=== PATIENT | female | born 2005 | race Caucasian/White ===

== ENCOUNTER 2023-04-25 09:03 | Outpatient (CLI) | payer OTHER, SELFPAY ==
--- NOTE | 2023-04-25 09:15 | CRLHL7_ITS ---
For Patients: As a result of the Cures Act, medical imaging exams and procedure reports are released immediately into your electronic medical record. You may view this report before your referring provider. If you have questions, please contact your health care provider. INDICATION: First trimester scan, establish dates. COMPARISON: None. TECHNIQUE: Real-time wright-scale imaging of the pelvis was performed. FINDINGS: Sonographic imaging demonstrates a single living intrauterine gestation. The embryo demonstrates a regular cardiac rate measuring 150 beats per minute. The embryo`s crown-rump length measurement of 1.2 cm corresponds to a gestational age of 7 weeks 2 days with a sonographic due date of December 10, 2023. There is a normal-appearing yolk sac measuring 2 mm. There are no gross abnormalities noted within the embryo at this early state of development. The placenta has not yet developed. The gestational sac has a normal appearance. Two small foci of subchorionic hemorrhage 1 near the fundus and 1 along the inferolateral aspect of the gestational sac both of which measure less than 10 mm. The amount of fluid within the sac appears appropriate for gestational age. The cervix is closed. The myometrium appears normal except for a probable 8 x 4 x 7 mm right lower intramural uterine fibroid. The ovaries are of normal size. The right ovary measures 3.4 x 2.8 x 2.4 cm and contains a corpus luteum cyst of measuring 2.4 x 1.9 x 2.1 cm. The left ovary measures 2.9 x 2.0 x 2.2 cm. There are no suspicious fluid collections noted in the cul-de-sac. IMPRESSION: Normal first trimester OB ultrasound exam. Gestational age calculated at 7 weeks 2 days with a sonographic due date of December 10, 2023. Dictated by Mert Bean MD @ 04/25/2023 10:23:23 AM (Electronically Signed)
== END 2023-04-25 09:04 | disposition home or self-care (01) ==
LOC: US 09:07
PROVIDERS: Visit Provider Advanced Practice Midwife
DX: Z34.91 Encounter for supervision of normal pregnancy, unspecified, first trimester (principal); Z3A.01 Less than 8 weeks gestation of pregnancy
CPT/HCPCS: 76817; 80306; 86703; 86803; 86850; 86900; 86901; 87086; 87340; 87491; 87591

== ENCOUNTER 2023-04-25 10:08 | Outpatient (CLI) | payer OTHER, SELFPAY ==
[2023-04-25 18:58] LABS: Chlamydia DNA Amplified* NOT DETECTED (No Detected); GC DNA Amplified* NOT DETECTED (No Detected)
== END 2023-04-25 10:09 | disposition home or self-care (01) ==
PROVIDERS: Visit Provider Advanced Practice Midwife
DX: Z34.91 Encounter for supervision of normal pregnancy, unspecified, first trimester (principal); Z3A.01 Less than 8 weeks gestation of pregnancy
CPT/HCPCS: 80306; 86592; 86703; 86762; 86787; 86803; 86850; 86900; 86901; 87086; 87340; 87491; 87591

== ENCOUNTER 2023-07-23 12:47 | Outpatient (CLI) | payer OTHER, SELFPAY ==
--- NOTE | 2023-07-23 13:00 | CRLHL7_ITS ---
For Patients: As a result of the Century Cures Act, medical imaging exams and procedure reports are released immediately into your electronic medical record. You may view this report before your referring provider. If you have questions, please contact your health care provider. INDICATION: Evaluate anatomy. COMPARISON: 04/25/2023 TECHNIQUE: Real time wright scale imaging of the fetus was performed as well as color Doppler analysis of the umbilical vessels. FINDINGS: Sonographic imaging demonstrates a single living intrauterine gestation. Fetus demonstrates a regular cardiac rate of 149 beats per minute. Fetus has a variable position. The placenta lies fundal posterior without evidence of placenta previa. The edge of the placenta is located 12.0 cm from the internal cervical os. Amniotic fluid volume appears normal. Single deepest vertical pocket: 6.8 cm. The cervix is closed and measures 3.1 cm in length. The composite ultrasound gestational age is calculated at 20 weeks 4 days with an estimated sonographic due date of 12/06/2023. The estimated weight is 349 grams which lies at the 67th %. The following biometric measurements were obtained: Biparietal diameter: 4.8 cm/20 weeks 4 days 76th% Head circumference: 17.7 cm/20 weeks 1 day 52nd% Abdominal circumference: 15.5 cm/20 weeks 4 days 66th% Femur length: 3.2 cm/20 weeks 0 days 44th% The HC/AC ratio measures: 1.15 range (1.07-1.25) On anatomic survey, there is a normal appearance of the cerebral ventricles, cavum septi pellucidi, cisterna magna and cerebellum. The nose, lips, and facial profile appear normal. The cervical, thoracic and lumbar spine are well visualized and appear normal. There is a normal four-chamber heart view and the left and right ventricular outflow tracts appear normal. The diaphragm and stomach appear normal. The kidneys and bladder also appear normal. There is a normal three-vessel cord and there is an eccentric cord insertion site, located 2.1 cm from the placental edge. The four extremities appear normal. IMPRESSION: Concordance of clinical and sonographic dating. No intrinsic abnormalities noted on anatomic survey. Eccentric placental cord insertion into the placenta 2.1 cm from the placental edge. Dictated by Raghav Bradshaw MD @ 07/24/2023 11:29:35 AM (Electronically Signed)
== END 2023-07-23 12:48 | disposition home or self-care (01) ==
PROVIDERS: Visit Provider Obstetrics & Gynecology
DX: Z34.92 Encounter for supervision of normal pregnancy, unspecified, second trimester (principal); Z3A.20 20 weeks gestation of pregnancy
CPT/HCPCS: 76805

== ENCOUNTER 2023-09-17 14:25 | Outpatient (CLI) | payer OTHER, SELFPAY | END 2023-09-17 14:26 | disposition home or self-care (01) | LOC: NFLDREF 09-20 05:50 | PROVIDERS: Visit Provider Obstetrics & Gynecology | DX: Z34.90 Encounter for supervision of normal pregnancy, unspecified, unspecified trimester (principal) | CPT/HCPCS: 86592 ==

== ENCOUNTER 2023-11-14 11:00 | Outpatient (CLI) | payer OTHER, SELFPAY ==
[2023-11-15 13:54] LABS: Strep B DNA Probe Negative (Negative)
[2023-11-15 14:05] LABS: Strep B Susceptibility Needed? No
== END 2023-11-14 11:01 | disposition home or self-care (01) ==
LOC: NFLDREF 11:01
PROVIDERS: Visit Provider Obstetrics & Gynecology
DX: Z34.93 Encounter for supervision of normal pregnancy, unspecified, third trimester (principal); Z3A.36 36 weeks gestation of pregnancy
CPT/HCPCS: 87081; 87653

== ENCOUNTER 2023-12-10 13:30 | Inpatient (IN) | payer OTHER, SELFPAY ==
[2023-12-10] VITALS (37 sets, daily range): BP systolic 92–148; BP diastolic 49–87; PULSE 60–121; RESP 16; TEMP 36.5–36.9; O2SAT 91–100; BMI 31.7
[2023-12-10 15:56] LABS: Amphetamine Screen Urine Negative (Negative); Barbiturate Screen Urine Negative (Negative); Benzodiazepines Screen Urine Negative (Negative); Cannabinoid Screen Urine Negative (Negative); Cocaine Screen Urine Negative (Negative); Methadone Screen Urine Negative (Negative); Methamphetamines Screen Urine Negative (Negative); Opiate Screen Urine Negative (Negative); Oxycodone Screen Urine Negative (Negative); Phencyclidine Screen Urine Negative (Negative); Tricyclic Antidepressant Urine Negative (Negative)
--- NOTE | 2023-12-10 16:42 | W.PM.LDBA ---
Subjective History of Present Illness Date Seen: 12/10/23 Narrative: Patient is being admitted to Labor and Delivery for in labor for delivery. She is a 18 year old at 40 0/7 weeks gestation. Her full history and physical was dictated by Dr. JEONG on 11/21/23. Please see this for details. Patient states that she started to experience more frequent uterine contractions since last night. She called this morning to L&D and since she felt like contractions were still manageable she decided to wait until OB appointment scheduled today. I evaluated patient in clinic and cervix was found 4-5cm/90%/0 station. Sent to L&D for re evaluation for labor. Upon re evaluation cervix found 5cm and much more midline, patient experiencing painful/more intense uterine contractions, recommendation given for admission for delivery. Specific Issues/Plans Partner: Mika (lives with him) H&P by JEAN-PAUL on 11/21/23 1. Hx of marijuana use, stopped when occurred -UDS at [facility]: positive -Needs toxicology when in labor 2. Small fibroid 8 mm, just above the cervix Flu: declines Tdap: Given, 10/17/23 RSV: 11/01/23 OB - Problem Based A/P Additional Plan (1) : Status: Acute Plan Expectant management of labor. GBS negative no need for antibiotic prophylaxis. Pain management as needed. OB Exam Physical Exam Vital signs: Pulse BP Pulse Ox 89 122/85 96 12/10/23 13:32 12/10/23 13:32 12/10/23 13:32 Detailed Labor and Delivery Exam Patient Gravid: Yes Dilation (cm): 5 Effacement (%): 90 Cervix position: mid Consistency: soft Tachysystole: No Contraction intensity: Moderate Fetus (Single) Station: 0 Amniotic Membrane Status: intact Heart Rate Baseline: 130 Monitor Accelerations: Present Monitor Decelerations: None [employer]ach[employer]ist Variability: Moderate (6-25)
[2023-12-10] MEDS: ONDANSETRON ODT 4 MG TAB PO (18:51)
[2023-12-10] MEDS: LACTATED RINGERS 1000 ML 1,000 ML 999 ML IV ×2 (21:03→22:06)
[2023-12-10 21:14] LABS: Basophils Percent Auto 0.1 % (0.0-3.0); Hematocrit 42.9 % (33.0-51.0); Hemoglobin* 14.5 gm/dL (12.0-16.0); Immature Granulocytes Pct Auto 0.3 %; Lymphocytes Percent Auto 5.5 % (20-44); Mean Corpuscular HGB Conc 34 gm/dL (32-36); Mean Corpuscular Hemoglobin 32 pg (26-34); Mean Corpuscular Volume 94 fL (80-100); Monocytes Percent Auto 4.8 % (0.0-11.0); Neutrophils Percent Auto 89.3 % (42.0-72.0); Platelet Count* 167 K/uL (140-440); RDW Coefficient of Variation % 12.7 % (11.5-15.5); Red Blood Count 4.55 m/uL (4.00-5.20)
[2023-12-10 21:23] LABS: Slide Review Reflex No
[2023-12-10] MEDS: ROPIVACAINE 0.2% 100 ml 100 ML 12 MG EPIDURAL (22:06)
--- NOTE | 2023-12-10 22:12 | PM.ANBPRC ---
[facility] Medical History Heart murmur ?R01.1 - Cardiac murmur, unspecified (ICD-10) Social History Narrative: SOCIAL? ? Education: High school ? ? Work: [employer] in [place] ? ? Partner: Mika, not , [employer] ? ? Lives with: Mika? ? Pets: denies? ? Abuse: Denies past Safe at home with current partner ? ? Special Diet: Denies? ? Ok with a blood transfusion: yes? ? Culture or gnosticist beliefs: denies? RISK FACTORS? ? Exercise Times/wk: Active at work. ? ? Depression/Anxiety: denies? ? Previous Treatments NA Therapy NA EZEQUIEL: 2 PHQ 9: 2? ? Seat Belt Use: Routinely ? Smoking: Denies present. Previously smoked marijuana, stopped when the occurred. Alcohol/day: Denies while ? ? Caffeine: denies? ? Drug Use: Marijuana, stopped when occurred ? ? What is your current living situation?: I presently have a place to live Problems where you live: no known problems In the past 12 months, utilities in danger of being shut off: no In past 12 months, lack of transportation kept you from medical appts, meetings, work, or getting things needed for daily living: no In the past 12 mos, have been you worried that your food would run out before you had money to buy more?: never true In the past 12 mos, the food you bought just didn't last and you didn't have money to buy more?: never true Smoking Status: Never smoker How often does anyone, including family, friends and others, physically hurt you: never How often does anyone, including family, friends and others, insult or talk down to you: never How often does anyone, including family, friends and others, threaten you with harm: never How often does anyone, including family, friends and others, scream or curse at you: never Little interest or pleasure in doing things: not at all Feeling down, depressed, or hopeless: not at all Meds Home Medications and Allergies Home Medications Medication Instructions Recorded Confirmed Type cetirizine 10 mg tablet (Zyrtec) 10 mg PO QDAY PRN 04/25/23 12/10/23 History docosahexaenoic acid 200 mg 200 mg PO DAILY 04/25/23 12/10/23 History capsule ( DHA) calcium carbonate 200 mg calcium 200 mg PO BID 11/14/23 12/10/23 History (500 mg) chewable tablet (Tums) Allergies Allergy/AdvReac Type Severity Reaction Status Date / Time cat dander Allergy Mild Sneezing Verified 12/10/23 21:10 pollen extracts Allergy Mild Watery Eye Verified 12/10/23 21:10 Results Labs Labs: Laboratory Results - last 24 hr 12/10/23 12/10/23 15:41 21:00 WBC 17.20 H RBC 4.55 Hgb 14.5 Hct 42.9 MCV 94 MCH 32 MCHC 34 RDW Coeff of Ananda 12.7 Plt Count 167 Neut % (Auto) 89.3 H Lymph % (Auto) 5.5 L Pickens % (Auto) 4.8 Eos % (Auto) 0.0 Baso % (Auto) 0.1 Neut # (Auto) 15.40 H Lymph # (Auto) 0.90 [place]ens # (Auto) 0.80 Eos # (Auto) 0.00 Baso # (Auto) 0.00 Abs Immat Gran (auto) 0.10 Imm/Tot Granulo (auto) 0.3 Urine Opiates Screen Negative Ur Oxycodone Screen Negative Urine Methadone Screen Negative Ur Barbiturates Screen Negative U Tricyclic Antidepress Negative Ur Phencyclidine Scrn Negative Ur Amphetamines Screen Negative U Methamphetamines Scrn Negative U Benzodiazepines Scrn Negative Urine Cocaine Screen Negative U Marijuana (THC) Screen Negative Ur Drug Screen Comment See Note Vital Signs Vital Signs: Last Vital Signs Temp 98 F 12/10/23 19:33 Pulse 86 12/10/23 22:09 Resp 16 12/10/23 13:34 BP 133/60 12/10/23 22:09 Pulse Ox 100 12/10/23 22:08 Weight: 96.162 kg Height: 173.99 cm Anesthesia Procedures Epidural Insertion Patient Location: OB Start Time: 21:30 Stop Time: 22:12 Start Date: 12/10/23 Stop Date: 12/10/23 Reason for Block: procedure for pain Patient Position: sitting Performed By: Dixon Washington Preanesthetic Checklist: IV checked, risks and benefits discussed, monitors and equipment checked, pre-op evaluation, timeout performed and anesthesia consent Prep: chlorhexidine gluconate Monitoring: blood pressure monitoring, continuous pulse oximetry and heart rate Approach: midline Vertebral Space: lumbar (1-5) Epidural Technique: DEON saline Needle Type: Tuohy needle Injection Technique: continuous catheter Needle gauge: 17 Needle Length (cm): 10 cm Needle Insertion Depth (cm): 7 Catheter Gauge: 19 Catheter Type: multi-orifice Catheter at skin depth (cm): 13 Test Dose Result: negative and lidocaine 1.5% with epinephrine 1 to 200,000
[2023-12-10] MEDS: PHENYLEPHRINE 100 MCG/ML SYRINGE IVP ×2 (23:00→23:07)
[2023-12-10] MEDS: ePHEDrine sulfate 5 MG/ML inj 10 MG IVP ×2 (23:20→23:53)
--- NOTE | 2023-12-10 23:58 | PM.OBPNL ---
Subjective Time Seen by Provider: 23:58 Date Seen: 12/10/23 Narrative: Better Objective Vital Signs: Last Vital Signs Temp 98.5 F 12/10/23 23:24 Pulse 121 H 12/10/23 23:48 Resp 16 12/10/23 13:34 BP 96/49 L 12/10/23 23:48 Pulse Ox 98 12/10/23 23:54 Contractions Monitor mode: External Contraction pattern: Regular Contraction intensity: Moderate Assessment Assessment: active labor Station: +1 Amniotic Membrane Status: AROM (She has been progressing very well on her own, she is 9cm and I recommended AROM so that we help baby continue to come down, patient agreed. Light stained meconium fluid. ) Status: Category ll Heart Rate Baseline: 140 Floor Tiling Professional Variability: Moderate (6-25) Monitor Accelerations: Present Monitor Decelerations: Late (Secondary to hypotension, improved with ephedrine. IVF bolus and position changes. Currently resolved.) Plan Plan: Continue current management, will most likely be able to start pushing in the next 30 minutes.
[2023-12-11] VITALS (33 sets, daily range): BP systolic 102–146; BP diastolic 53–77; PULSE 84–134; RESP 16–18; TEMP 36.6–37; O2SAT 96–99
[2023-12-11] MEDS: OXYTOCIN 30 unit/500 ML in NS 30 UNIT/500 ML BAG 300 UNIT IVPB (01:55)
--- NOTE | 2023-12-11 02:17 | W.PM.OBVAGDE ---
OB Procedure Vag Delivery Mother Details Mother Details: The patient is a 18 year-old, 1, Para 0, admitted on 12/10/23 at 40 0/7 Days gestation. Admitted in labor foe delivery. Progressed well and was found 9cm and membranes still intact, recommended AROM, patient agreed and pushed effectively and was able to deliver vaginally w/o complications. : 1 Para: 1 Weeks Gestation: 40.1 Admission Date: 12/10/23 Additional Details Amniotic Membrane Status: AROM Amniotic Membrane Rupture Date: 12/10/23 Amniotic Membrane Rupture Time: 23:45 Amniotic Membrane Fluid Description: Meconium Stained Analgesia/Anesthesia Type: Epidural Waterbirth: No Pitcoin: No Intrapartal Events: Mod/Heavy Meconium Fluid Delivery augmentation: rupture of membranes Labor Onset: 19:40 Complete: 00:17 Pushin:18 Heart: heart tones during second stage were category 2, deep variable decelerations, good pushing efforts and progressive descent noted. scalp stimulation resulted in heart rate accelerations. Delivery Details Delivery Date: 12/11/23 Delivery Time: 01:52 Route of delivery: Gender: Female Viability: Alive; Heart Rate Present Position at Delivery: OA Delivery Details: Delivered over intact perineum via spontaneous vaginal delivery. was placed on maternal abdomen.? Cord was clamped and cut after a 30-60 second delay. Nose and mouth were bulb suctioned.? weight pending. 1 Minute Interval Total Score: 7 5 Minute Interval Total Score: 9 Additional Details Shoulder Dystocia: No Placenta Delivery Time: 02:03 Placental Delivery Description: Spontaneous Delivery repair: Vicryl Procedure Done: Global Blood Loss: 100 Laceration: Vaginal - 1st Degree Episiotomy Description: None Blood Loss Measurement Type: QBL Bakri Used: No Sponge/Need Count Correct: Yes Cord Vessel Description: 3 Vessels Event Summary Status: Mother and were stable after delivery. Disposition: floor
[2023-12-11] MEDS: IBUPROFEN 600 MG TABLET PO ×2 (09:53→16:34)
[2023-12-11] MEDS: DOCUSATE SODIUM 100 MG CAPSULE PO (09:54)
--- NOTE | 2023-12-11 11:35 | PC.SOCIAL ---
Received social work referral for substance abuse screening. Pt tested positive early in for THC. Pt was tested upon admission on 12/10/23 and was negative for all substances. Phone call to nursing in center and there are no identified social work needs at this time. Informed Nursing to call social work if there are any other needs during pt's stay at the hospital. Social work will follow up as needed.
--- NOTE | 2023-12-11 12:49 | PM.ANPOST ---
Post Anesthesia Note Post Anesthesia Note Patient seen: Inpatient Respiratory Status: adequate Cardiovascular Status: adequate Mental Status: baseline Pain: adequate Temp: baseline Anesthetic awareness: N/A Complications: none Follow care: none
[2023-12-12 00:33] VITALS: BP 116/73; PULSE 86; RESP 18; TEMP 36.6; O2SAT 99
[2023-12-12 07:45] VITALS: BP 115/74; PULSE 86; RESP 16; TEMP 36.6
--- NOTE | 2023-12-12 09:57 | PM.OBDSVD1 ---
DS: Providers Provider Date Seen: 12/12/23 Date of admission: 12/10/23 13:30 Primary care physician: Not a Local Provider Admitting Clinician: Noemí Hemphill MD Consults: 12/10/23 14:09 Consult to Weatherization Crew Leader [CONS] Routine Comment: Reason for Consult:: Substance Abuse Screening Attending Physician on discharge: Guicho Gil CNM Date of Discharge: 12/12/23 DS: Diagnosis Discharge Diagnosis (1) care and examination immediately after delivery: Status: Acute (2) Lactating mother: Status: Acute Exam Narrative: Exam Narrative: GENERAL APPEARANCE:? normal affect, alert, no distress MOOD:? appropriate CHEST:? clear to auscultation HEART:? regular rate and rhythm ABDOMEN:? soft, non-tender the uterine fundus is firm At Umbilicus, Midline and is appropriate for the stage of recovery. PERINEUM:? mild edema of the perineum, there is a Perineal Laceration,? 1st degree that is healing well. EXTREMITIES:? normal and trace edema Const: Vital Signs, click to edit/add: Vital Signs - 24 hr 12/11/23 16:27 12/11/23 21:16 12/12/23 00:33 Temperature 97.8 F 98.6 F 97.9 F Pulse Rate [Pulse Oximeter] 84 86 86 Respiratory Rate 16 18 18 Blood Pressure [Le ft Arm] 112/72 124/77 116/73 Pulse Oximetry 98 98 99 Oxygen Delivery Me thod Room Air Room Air 12/12/23 07:45 Temperature 97.8 F Pulse Rate [Pulse Oximeter] 86 Respiratory Rate 16 Blood Pressure [Le ft Arm] 115/74 Pulse Oximetry Oxygen Delivery Me thod Documenting provider has reviewed patient's vital signs: yes OB - DS: Summary Hospital Course Hospital Course: Cortez is a 18 y.o. who was admitted to L & D for labor. ?She had an uncomplicated NVD .?The patient feels well. ?The pain is well controlled with current medications. ?She has no new complaints. ?She is breast feeding and reports things are going well.? the patient has done well.? Vitals have been stable.? She has remained afebrile.? Has a good appetite, is tolerating a general diet. ?She is voiding without difficulty.? She is passing gas and has not had a bowel movement.? She is ambulating and denies any dizziness.? Has Small amount of rubra lochia. ?She is undecided on her plan for prevention. Peripartum Data delivery method: Vaginal Laceration description: Vaginal - 1st Degree complications: none Gender: Female Infant Discharge Plan: Home Status at Discharge Functional status at discharge: independent ambulation Overall status at discharge: patient is progressing back to baseline Time Spent with Patient Time attestation: Total time spent providing and/or coordinating discharge services: Time spent: Less than 30 minutes Discharge Plan Discharge Disposition: Home, Self-Care Date of Admission: 12/10/23 13:30 Attending Provider on Discharge: Guicho Gil Primary Care Provider: Provider,Not a Local Condition: Stable Anticipated Discharge Date/Time: 12/12/23 12:00 Discharge Medications: New acetaminophen 500 mg Tablet 1,000 mg PO Q6H PRNQty: 0 0RF docusate sodium 100 mg Capsule 100 mg PO DAILY Qty: 90 2RF ibuprofen 600 mg Tablet 600 mg PO Q6H PRNQty: 60 0RF Continued cetirizine [Zyrtec] 10 mg tablet 10 mg PO QDAY PRN DHA 200 mg capsule 200 mg PO DAILY calcium carbonate [Tums] 200 mg calcium (500 mg) tablet,chewable 200 mg PO BID Discharge Orders: Discharge Order (Routine); Ordered 12/12/23 Ordered By: Guicho Gil Patient Education: OB Over the Counter Medication Information, OB Vaginal/Breast Feeding Additional Instructions: Discharge instructions were reviewed with the patient including signs and symptoms of infection and home going medications Nothing vaginally for 6 weeks: no tampons or intercourse Off Work or School for 8 weeks 2-week visit: discuss infant feeding concerns, review control options and screen for anxiety/depression. 6-week visit for an annual exam. consultation services are available to all mothers and babies for the first year after delivery.? To make an appointment, please call [phone]. Activity Level: Activity as Tolerated Discharge Diet: Regular Follow Up Appointments: Provider,Not a Local [Primary Care Provider] - [facility] [Provider Group] Forms: [employer] Info Instructions
[2023-12-12 23:16] LABS: Rapid Plasma Reagin (RPR) Non Reactive (Non Reactive)
[2023-12-14 07:02] LABS: 6-Acetylmorphine Cord Qual Not Detected ng/g (Cutoff 1); 7-Aminoclonazepam Cord Qual Not Detected ng/g (Cutoff 1); Alpha-OH-Alprazolam Cord Qual Not Detected ng/g (Cutoff 0.5); Alpha-OH-Midazolam Cord Qual Not Detected ng/g (Cutoff 2); Alprazolam Cord Qual Not Detected ng/g (Cutoff 0.5); Amphetamine Cord Qual Not Detected ng/g (Cutoff 5); Benzoylecgonine Cord, Qual Not Detected ng/g (Cutoff 1); Buprenorphine Cord Qual Not Detected ng/g (Cutoff 1); Butalbital Cord Qual Not Detected ng/g (Cutoff 25); Clonazepam Cord Qual Not Detected ng/g (Cutoff 1); Cocaethylene Cord Qual Not Detected ng/g (Cutoff 1); Cocaine Cord Qual Not Detected ng/g (Cutoff 1); Codeine Cord Qual Not Detected ng/g (Cutoff 0.5); Diazepam Cord Qual Not Detected ng/g (Cutoff 1); Dihydrocodeine Cord Qual Not Detected ng/g (Cutoff 1); Fentanyl Cord Qual Not Detected ng/g (Cutoff 0.5); Gabapentin Cord Qual Not Detected ng/g (Cutoff 10); Hydrocodone Cord Qual Not Detected ng/g (Cutoff 0.5); Hydromorphone Cord Qual Not Detected ng/g (Cutoff 0.5); Lorazepam Cord Qual Not Detected ng/g (Cutoff 5); MDMA- Ecstasy Cord Qual Not Detected ng/g (Cutoff 5); Meperidine Cord Qual Not Detected ng/g (Cutoff 2); Methadone Cord Qual Not Detected ng/g (Cutoff 2); Methadone Metabol Cord Qual Not Detected ng/g (Cutoff 1); Methamphetamine Cord Qual Not Detected ng/g (Cutoff 5); Midazolam Cord Qual Not Detected ng/g (Cutoff 1); Morphine Cord Qual Not Detected ng/g (Cutoff 0.5); N-desmethyltramadol Cord Qual Not Detected ng/g (Cutoff 2); Naloxone Cord Qual Not Detected ng/g (Cutoff 1); Norbuprenorphine Cord Qual Not Detected ng/g (Cutoff 0.5); Nordiazepam Cord Qual Not Detected ng/g (Cutoff 1); Norhydrocodone Cord Qual Not Detected ng/g (Cutoff 1); Noroxycodone Cord Qual Not Detected ng/g (Cutoff 1); Noroxymorphone Cord Qual Not Detected ng/g (Cutoff 0.5); O-desmethyltramadol Cord Qual Not Detected ng/g (Cutoff 2); Oxazepam Cord Qual Not Detected ng/g (Cutoff 2); Oxycodone Cord Qual Not Detected ng/g (Cutoff 0.5); Oxymorphone Cord Qual Not Detected ng/g (Cutoff 0.5); Phencyclidine- PCP Cord Qual Not Detected ng/g (Cutoff 1); Phenobarbital Cord Qual Not Detected ng/g (Cutoff 75); Phentermine Cord Qual Not Detected ng/g (Cutoff 8); Propoxyphene Cord Qual Not Detected ng/g (Cutoff 1); THC-COOH Cord Qual Not Detected ng/g (Cutoff 0.2); Tapentadol Cord Qual Not Detected ng/g (Cutoff 2); Temazepam Cord Qual Not Detected ng/g (Cutoff 1); Tramadol Cord Qual Not Detected ng/g (Cutoff 2); Zolpidem Cord Qual Not Detected ng/g (Cutoff 0.5); m-OH-Benzoylecgonine Cord Qual Not Detected ng/g (Cutoff 1)
== END 2023-12-12 13:45 | disposition home or self-care (01) | DRG 807 ==
LOC: OB OUT 19:30 → OB 12-11 10:55
PROVIDERS: Admitting Provider Obstetrics & Gynecology; Visit Provider Obstetrics & Gynecology
DX: O77.0 Labor and delivery complicated by meconium in amniotic fluid (principal); O70.0 First degree perineal laceration during delivery; Z37.0 Single live birth; Z3A.40 40 weeks gestation of pregnancy
CPT/HCPCS: 01967; 36415; 80306; 80323; 80326; 80347; 80349; 80355; 80364; 85018; 85025; 86592; 86850; 86900; 86901; G0463; A9270; J0665; J2371; J2795; J7120